=== PATIENT | female | born 1940 | race Caucasian/White ===

== ENCOUNTER 2023-01-31 11:34 | Emergency (ER) | payer MEDICARE ==
[2023-01-31 12:01] LABS: BASOPHILS ABSOLUTE AUTO 0.07 K/uL (0.00-0.10); EOSINOPHILS ABSOLUTE AUTO 0.15 K/uL (0.00-0.40); EOSINOPHILS PERCENT AUTO 2.2 % (0.0-5.4); HEMATOCRIT 42.2 % (34.3-46.0); HEMOGLOBIN 13.4 g/dL (11.2-15.5); IMMATURE GRAN PERCENT AUTO 0.1 % (0.0-0.7); LYMPHOCYTES ABSOLUTE AUTO 2.05 K/uL (0.8-3.3); LYMPHOCYTES PERCENT AUTO 30.7 % (11.4-47.7); MEAN CORPUSCULAR HEMOGLOBIN 27.6 pg (31.6-35.5); MEAN CORPUSCULAR HGB CONC 31.8 g/dL (31.6-35.5); MONOCYTES ABSOLUTE AUTO 0.43 K/uL (0.20-0.90); MONOCYTES PERCENT AUTO 6.4 % (3.3-12.6); NEUTROPHILS ABSOLUTE AUTO 3.97 K/uL (1.0-7.6); NEUTROPHILS PERCENT AUTO 59.6 % (40.0-78.1); PLATELET COUNT,PLT 279 K/uL (130-375); RED BLOOD CELL COUNT 4.85 M/uL (3.77-5.24); WHITE BLOOD CELL COUNT,WBC 6.7 K/uL (3.2-11.0)
[2023-01-31 12:03] LABS: IMMATURE GRAN ABSOLUTE AUTO 0.01 K/uL (0.00-0.23)
[2023-01-31 12:20] LABS: CREATININE 0.9 mg/dL (0.6-1.0); EST CRCL DRUG DOSING (CG) 38.77 mL/min; POTASSIUM,K 4.6 mmol/L (3.6-5.2); TROPONIN I HIGH SENSITIVITY 8.7 pg/mL (<=60.3); TSH ULTRASENSITIVE 0.999 uIU/mL (0.358-3.740)
[2023-01-31 12:28] LABS: ANION GAP 15.6 mmol/L (5.0-14.0)
[2023-01-31 12:31] LABS: PROTHROMBIN TIME 10.1 sec (9.2-10.6); PTT,PARTIAL THROMBOPLSTIN TIME 25.6 sec (21.8-27.3)
[2023-01-31 12:34] LABS: A/G RATIO 0.9 (1.2-2.2); ALBUMIN 3.8 g/dL (3.4-5.0); BILIRUBIN DIRECT 0.12 mg/dL (0.0-0.2); BILIRUBIN INDIRECT 0.48; BILIRUBIN TOTAL 0.6 mg/dL (0.2-1.0)
== END 2023-01-31 15:53 | disposition home or self-care (01) ==
LOC: JP.ED 11:34
DX: G45.9 Transient cerebral ischemic attack, unspecified (principal); R55 Syncope and collapse; E86.0 Dehydration; Z95.0 Presence of cardiac pacemaker; Z87.19 Personal history of other diseases of the digestive system; Z95.2 Presence of prosthetic heart valve
CPT/HCPCS: 36415; 80048; 80076; 83735; 84443; 84484; 85025; 85610; 85730; 93005; 99285

== ENCOUNTER 2025-01-24 07:53 | Emergency (ER) | payer MEDICARE, BC ==
[2025-01-24 08:33] LABS: BASOPHILS ABSOLUTE AUTO 0.05 K/uL (0.00-0.10); BASOPHILS PERCENT AUTO 1.1 % (0.1-1.3); EOSINOPHILS ABSOLUTE AUTO 0.10 K/uL (0.00-0.40); EOSINOPHILS PERCENT AUTO 2.3 % (0.0-5.4); IMMATURE GRAN ABSOLUTE AUTO 0.01 K/uL (0.00-0.23); IMMATURE GRAN PERCENT AUTO 0.2 % (0.0-0.7); LYMPHOCYTES ABSOLUTE AUTO 1.19 K/uL (0.8-3.3); LYMPHOCYTES PERCENT AUTO 27.4 % (11.4-47.7); MONOCYTES ABSOLUTE AUTO 0.31 K/uL (0.20-0.90); MONOCYTES PERCENT AUTO 7.1 % (3.3-12.6); NEUTROPHILS ABSOLUTE AUTO 2.69 K/uL (1.0-7.6); NEUTROPHILS PERCENT AUTO 61.9 % (40.0-78.1); PLATELET COUNT,PLT 175 K/uL (130-375); RED BLOOD CELL COUNT 4.61 M/uL (3.77-5.24); WHITE BLOOD CELL COUNT,WBC 4.4 K/uL (3.2-11.0)
[2025-01-24 08:56] LABS: A/G RATIO 1.1 (1.2-2.2); ALANINE AMINOTRANSFERASE,ALT 33 U/L (12-78); ASPARTATE AMNIOTRANSFERASE,AST 30 U/L (15-37); BILIRUBIN TOTAL 1.5 mg/dL (0.2-1.0); BLOOD UREA NITROGEN,BUN 34 mg/dL (7-18); CARBON DIOXIDE,CO2 30 mmol/L (21-32); CHLORIDE,CL 101 mmol/L (100-108); CREATININE 0.8 mg/dL (0.6-1.0); EST CRCL DRUG DOSING (CG) 42.14 mL/min; ESTIMATED GFR 73 mL/min (>60); GLUCOSE RANDOM 91 mg/dL (74-106); POTASSIUM,K 3.9 mmol/L (3.6-5.2); PROTEIN TOTAL,TP 7.7 g/dL (6.4-8.2); SODIUM,NA 140 mmol/L (140-148); TROPONIN I HIGH SENSITIVITY 7.2 pg/mL (<=60.3)
== END 2025-01-24 09:23 | disposition home or self-care (01) ==
LOC: JP.ED 07:53
DX: R07.89 Other chest pain (principal); R25.2 Cramp and spasm; R20.2 Paresthesia of skin; Z79.82 Long term (current) use of aspirin
CPT/HCPCS: 36415; 80053; 84484; 85025; 93005; 99285; A9270; 93010; 99284